=== PATIENT | male | born 1970 | race Caucasian/White ===

== ENCOUNTER 2017-12-03 20:52 | Emergency (ER) | payer BC ==
[~2017-12-03] VITALS: Ht 182.9 cm; Wt 97.5 kg
[2017-12-03 20:54] VITALS: Ht 182.9 cm; Wt 97.5 kg
[2017-12-03 21:45] LABS: AMPHETAMINE QUAL UR NONE DETECTED (See below)
[2017-12-03 21:50] LABS: BASOPHIL % 0.7 % (0-2); PLATELET COUNT 206 x10^3mcL (130-400); RED CELL DISTRIBUTION WIDTH 12.7 % (11.5-14.5)
[2017-12-03 22:14] LABS: CALCIUM 8.4 mg/dL (8.5-10.1); CARBON DIOXIDE 22.1 mmol/L (21-32); CHLORIDE SERUM 109 mmol/L (98-107); CREATININE SERUM 0.8 mg/dL (0.7-1.3); GFR1 > 60 mL/min; GLUCOSE SERUM 114 mg/dL (74-106); SODIUM SERUM 143 mmol/L (136-145)
[2017-12-03 22:40] LABS: ALBUMIN 3.8 g/dL (3.4-5.0); ALKALINE PHOSPHATASE 60 U/L (46-116); ALT/SGPT 31 U/L (16-63); AST/SGOT 28 U/L (15-37); BILIRUBIN TOTAL 0.32 mg/dL (0.20-1.00); TOTAL PROTEIN, SERUM 6.8 g/dL (6.4-8.2)
[2017-12-03 22:56] VITALS: BP 128/75
[2017-12-04 02:37] LABS: CHOLESTEROL/HDL RATIO 3.4; MAGNESIUM 2.1 mg/dL (1.8-2.4); PHOSPHOROUS 4.7 mg/dL (2.5-4.9)
== END 2017-12-03 23:45 | disposition home or self-care (01) ==
LOC: ED 20:52
PROVIDERS: Emergency Medicine; Internal Medicine
DX: R07.89 Other chest pain (principal); F17.200 Nicotine dependence, unspecified, uncomplicated; R06.02 Shortness of breath; F17.210 Nicotine dependence, cigarettes, uncomplicated
CPT/HCPCS: 83880; 84439; 99406; J1885; J7030; Q0092